=== PATIENT | female | born 1960 | race Caucasian/White ===

== ENCOUNTER 2020-09-17 15:56 | Outpatient (REF) | payer SELFPAY | END 2020-09-17 15:57 | disposition home or self-care (01) | LOC: HO.HAP 15:56 | PROVIDERS: Visit Provider Internal Medicine | DX: Z13.89 Encounter for screening for other disorder (principal) ==

== ENCOUNTER 2020-09-18 14:50 | Outpatient (REF) | payer SELFPAY | END 2020-09-18 14:51 | disposition home or self-care (01) | LOC: HO.HAP 14:50 | PROVIDERS: Visit Provider Internal Medicine | DX: Z46.1 Encounter for fitting and adjustment of hearing aid (principal); H90.3 Sensorineural hearing loss, bilateral | CPT/HCPCS: 99499 ==

== ENCOUNTER 2021-03-17 14:53 | Outpatient (REF) | payer OTHER, SELFPAY ==
--- NOTE | 2021-03-17 16:31 | MHC.AU.AHA ---
Adult Audiological Evaluation Date of Visit: 03/17/21 Reason for Appointment: Audiological re-evaluation to monitor the status of Ms. Grullon's hearing loss. She has a known bilateral sensorineural hearing loss and uses hearing aids binaurally. She feels her hearing may be gradually worsening. She denies any changes to her medical history. Previous Hearing Test Results: [facility] [place], 12/18/2019 - Mild to moderately-severe sensorineural hearing loss bilaterally. Hearing Instrument History- Right Ear: Staff Nuclear Medicine Technologist: [employer] Model: S9 [facility] Serial Number: [id number] Battery Size: 10 Repair Warranty: 02/21/2020 Loss and Damage Warranty: 03/08/2011 Dispensed By: [facility] Date of Fittin03/08/2009 Hearing Instrument History- Left Ear: Staff Nuclear Medicine Technologist: [employer] Model: S9 [facility] Serial Number: [id number] Battery Size: 10 Repair Warranty: 09/18/2015 Loss and Damage Warranty: 03/08/2011 Dispensed By: [facility] Date of Fittin03/08/2009 Otoscopy: Right Ear: Unremarkable Left Ear: Unremarkable Tympanometry: Tympanometry performed due to: To assess integrity of the middle ear system Right Ear: Normal Middle Ear System (Type A) Left Ear: Normal Middle Ear System (Type A) Hearing Evaluation: Transducer(s) Used: Insert Earphones, Bone Conduction Method: Conventional Audiometry Stimuli Used: Pure Tones Right Ear: Description of Hearing: Mild to moderately-severe sensorineural hearing loss from 250-8000 Hz. Left Ear: Description of Hearing: Mild to moderately-severe sensorineural hearing loss from 250-8000 Hz. Speech Recognition Threshold (SRT): Method Used: Monitored Live Voice Stimuli Used: Spondee Words Right Ear: 50 dBHL Left Ear: 45 dBHL Word Discrimination: Method: Recorded Lists Word Lists Used: NU-6 Right Ear: 88% at 90 dBHL Left Ear: 92% at 85 dBHL Comparison: Compared to most recent evaluation: In the right ear, hearing decreased by 10 dBHL at 6000 Hz and 20 dBHL at 8000 Hz. All other thresholds stable. Recommendations: Audiological re-evaluation in one year. Hearing aid maintenance performed today. Diagnosis: Primary Diagnosis: H90.3 Bilateral Sensorineural Hearing Loss Services Performed: Comprehensive Audiological Evaluation (CPT 30765) Tympanometry (CPT 34892) Signature: Provider: Shaw Renteria, CCC-A
== END 2021-03-17 14:54 | disposition home or self-care (01) ==
LOC: HO.SH 14:53
PROVIDERS: Visit Provider Internal Medicine
DX: H90.3 Sensorineural hearing loss, bilateral (principal)
CPT/HCPCS: 92557; 92567

== ENCOUNTER 2022-05-19 14:00 | Outpatient (REF) | payer SELFPAY ==
--- NOTE | 2022-05-19 16:50 | MHC.AU.HFU ---
Hearing Instrument Follow-Up- Binaural Date of Visit: 05/19/22 Right Ear: Maria Guadalupe [place] series 9 [facility], [phone], red Repair Warranty: 02/21/2020 Loss and Damage Warranty: 03/08/2011 Battery Size: 10 Type of Wax Guard: HearClear Dispensed By: [facility] Date of Fittin03/08/2009 Left Ear: Maria Guadalupe [place] series 9 [facility], [phone], blue Repair Warranty: 09/18/2015 Loss and Damage Warranty: 03/08/2011 Battery Size: 10 Type of Wax Guard: HearClear Dispensed By: [facility] Date of Fittin03/08/2009 Follow-Up Summary: The patient is here for a hearing aid check following an updated audiogram. Hearing is stable bilaterally- see audiogram for report. The patients hearing aids are from 2008 but still work very well for the patient. Visual inspection reveals some debris on the hearing aids and wax guards, so I replaced the wax guards and brushed/wiped the hearing aids/microphones. Listening check reveals clear sound bilaterally. The patient reports good sound bilaterally. $50 paid for hearing aid cleaning. No re-programming required as hearing is stable. Patient recommended to return in 1 year, sooner if concerns arise. Diagnosis Code(s): Primary Diagnosis: H90.3 Bilateral Sensorineural Hearing Loss Signature: Provider: Shaw Woodson, [facility]
== END 2022-05-19 14:01 | disposition home or self-care (01) ==
LOC: HO.HAP 14:00
PROVIDERS: Visit Provider Internal Medicine
DX: Z46.1 Encounter for fitting and adjustment of hearing aid (principal); H90.3 Sensorineural hearing loss, bilateral
CPT/HCPCS: 92593

== ENCOUNTER 2022-05-19 14:57 | Outpatient (REF) | payer BC, SELFPAY | END 2022-05-19 14:58 | disposition home or self-care (01) | LOC: HO.SH 14:57 | PROVIDERS: Visit Provider Internal Medicine | DX: H90.3 Sensorineural hearing loss, bilateral (principal) | CPT/HCPCS: 92557 ==

== ENCOUNTER 2022-11-09 15:49 | Outpatient (REF) | payer SELFPAY | END 2022-11-09 15:50 | disposition home or self-care (01) | LOC: HO.HAP 15:49 | PROVIDERS: Visit Provider Internal Medicine | DX: Z13.89 Encounter for screening for other disorder (principal) ==

== ENCOUNTER 2022-12-02 15:57 | Outpatient (REF) | payer SELFPAY | END 2022-12-02 15:58 | disposition home or self-care (01) | LOC: HO.HAP 15:57 | PROVIDERS: Visit Provider Internal Medicine | DX: Z46.1 Encounter for fitting and adjustment of hearing aid (principal); H90.3 Sensorineural hearing loss, bilateral | CPT/HCPCS: V5014 ==

== ENCOUNTER 2023-06-02 15:53 | Outpatient (REF) | payer SELFPAY | END 2023-06-02 15:54 | disposition home or self-care (01) | LOC: HO.HAP 15:53 | PROVIDERS: Visit Provider Internal Medicine | DX: Z13.89 Encounter for screening for other disorder (principal) ==